=== PATIENT | male | born 1950 | race African-American/Black ===

== ENCOUNTER → 2016-11-04 | Outpatient (CLI) | payer OTHER ==
[~2016-11-04] MED LIST: AMLODIPINE BESY10 MG PO; ASPIRIN81 M2 PO; ATENOLOL25 MG PO; CIPROFLOXACIN500 M1 PO; COLCRYS0.6 MG PO; DORZOLAMIDE; DORZOLAMIDE HCL10 M2 OD; DORZOLAMIDE-TIM10 ML OP; DOXAZOSIN MESYLA4 MG PO; HCTZ PO; INVOKANA100 MG PO; LISINOPRIL PO; LISINOPRIL20 MG PO; LORTAB 5/500 TA1 TA1 PO; NORVASC10 MG PO; PRAVACHOL20 MG PO; PRAVASTATIN SOD20 MG PO; PRED FORTE1 ML OD; PRED MILD5 ML OD; PREDNISONE10 MG PO; VANCOCIN OD; VIGAMOX; VIGAMOX3 M1 OD; VIGAMOX3 M2 OD; ZEBETA5 MG PO; [UNRECOGNIZED DRUG - OTHER]
--- NOTE | ~2016-11-04 | US77 ---
[facility] A Service of [facility] & [facility] RADIOLOGY TEXT RESULTS PATIENT: EDITH CARLOS LOCATION: [facility] : 50 UNIT #: [id number] AGE: [address]: Jamey Duggan MD SEX: M ORDER DR: [id number] [facility] [address] [place], [place] [address] [id number] O MR#: [id number] Acc #: [id number] NAME: EDITH CARLOS : 1950 SEX: M STUDY DATE/TIME: 11/04/2016 13:02 UNIT: [facility] ROOM: STUDY DESCRIPTION: US Kidney Bilateral Complete Attending Physician: Jamey Duggan M.D. Referring Physician: Jamey Duggan M.D. Ordering Physician: Jamey Duggan M.D. Primary Care Physician: Sushil Dunham M.D. MEDICAL IMAGING REPORT This report is preliminary unless electronic signature is present EXAM Renal sonogram HISTORY 66-year-old male with multiple simple and complex cysts in both kidneys. Patient presents for follow up complex renal cysts. COMPARISON Renal sonogram 10/16/2015 and 08/22/2013. FINDINGS Real-time examination demonstrates large anechoic structure off the upper pole of the right kidney, measuring 4.2 x 4.2 x 4 cm, consistent with a large simple cyst. The more complex cystic- appearing lesions in the upper pole of the right kidney and mid to lower pole left of the right kidney are not clearly identified on today's study. Overall renal length appears normal, measuring just over 12 cm. No hydronephrosis. The left kidney demonstrates multiple anechoic lesions with a lesion measuring up to 2 x 2.2 x 2.3 cm, a lesion measuring 2.3 x 2.5 x 2.5 cm, and a lesion in the mid pole measuring about 1.1 x 2.3 x 1.8 cm. These all appear to represent simple cysts, though 1 of the lesions has a somewhat bilobed configuration. No suspicious or solid masses are identified. Bladder unremarkable. The surrounding perinephric soft tissues unremarkable. The left kidney measures right at 11 cm in length. IMPRESSION 1. Multiple bilateral renal cysts. These all appear predominately simple with the exception of a septated or bilobed cyst in the left kidney. The more complex-appearing lesion noted in the right kidney on the October 2005 study is not clearly identified on today's exam. 2. If clinically warranted, further evaluation with MRI or multiphase CT may be of benefit to further evaluate the extent of the patient's STS. 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 Dictated by... Rosales Pathak M.D. THIS IS AN ELECTRONICALLY VERIFIED REPORT Rosales Pathak M.D. at 11/08/2016 10:16 AM Jeffrey TD: 11/04/2016 19:13 JOB #: [id number] MEDICAL IMAGING REPORT Page 1 of 1 COPY
== END | disposition home or self-care (01) ==
LOC: CGUS 12:43
DX: N28.89 Other specified disorders of kidney and ureter (principal); Q61.02 Congenital multiple renal cysts; N28.9 Disorder of kidney and ureter, unspecified
CPT/HCPCS: 76770